=== PATIENT | female | born 1985 | race African-American/Black ===

== ENCOUNTER 2017-08-03 18:34 | Emergency (ER) | payer MEDICAID ==
[2017-08-03] MEDS ORDERED: LIDOCAINE 1% INJ-PF (10 MG/ML) 30 ML SDV INJ ONE (18:51)
[2017-08-03] MEDS ORDERED: IBUPROFEN 600 MG TABLET PO ONE ×2 (18:51→20:02)
[2017-08-03] MEDS ORDERED: ACETAMINOPHEN 325 MG TABLET PO ONE (18:51)
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
[2017-08-03] MEDS ORDERED: LIDOCAINE 4%/TETRACAINE 0.5%/EPI 0.18% 5 ML TOPICAL SOLN TOP ONE (19:08)
[2017-08-03 21:48] VITALS: BP 131/95
== END 2017-08-03 21:49 | disposition home or self-care (01) ==
LOC: ER 18:34
DX: L03.011 Cellulitis of right finger (principal); M79.642 Pain in left hand
CPT/HCPCS: 99283; J3490 ×4

== ENCOUNTER 2017-08-06 22:49 | Emergency (ER) | payer MEDICAID ==
[2017-08-06] MEDS ORDERED: KETOROLAC TROMETHAMINE 60 MG/2 ML SDV IM ONE (23:27)
[2017-08-06] MEDS ORDERED: SULFAMETHOXAZOLE/TRIMETHOPRIM 800-160 MG TABLET PO ONE (23:31)
--- NOTE | 2017-08-06 23:32 | ER Document Report ---
ED Wound - General Chief Complaint: Wound Recheck Stated Complaint: HAND PAIN Time Seen by Provider: 08/06/17 23:27 Mode of Arrival: Ambulatory Information source: Patient TRAVEL OUTSIDE OF THE [place] IN LAST 30 DAYS: No - HPI Patient complains to provider of: Laceration Occurred: Other - pt had stiches placed in L thumb 2 days ago -- states stiches have become painful. Denies fever, wound d/c - Related Data Allergies/Adverse Reactions: iodine Allergy (Verified 08/06/17 23:11) Shellfish * [Shellfish] Allergy (Verified 08/06/17 23:11) Penicillins Adverse Reaction (Verified 08/06/17 23:11) Past Medical History - Social History Smoking Status: Never Smoker Cigarette use (# per day): No Chew tobacco use (# tins/day): No Smoking Education Provided: No Family History: None, Reviewed & Not Pertinent Pulmonary Medical History: Reports: Hx Asthma, Hx Bronchitis Renal/ Medical History: Denies: Hx Peritoneal Dialysis - Immunizations Immunizations up to date: Yes Hx Diphtheria, Pertussis, Tetanus Vaccination: Yes Review of Systems - Review of Systems Constitutional: No symptoms reported EENT: No symptoms reported Cardiovascular: No symptoms reported Respiratory: No symptoms reported Gastrointestinal: No symptoms reported Musculoskeletal: See HPI, Other - R thumb pain -: Yes All other systems reviewed and negative Physical Exam - Vital signs Vitals: Temp Pulse Resp BP Pulse Ox 99 F 73 16 91/66 L 100 08/06/17 23:12 08/06/17 23:12 08/06/17 23:12 08/06/17 23:12 08/06/17 23:12 - General General appearance: Appears well In distress: Mild - Extremities Hand: Tender, Other - min TTP of R thumb distal aspect. There are stitches in woulnd on volar aspect of distal phalanx which there is a faint area of surrounding erythema with no expressable d/c; FROM of thumb. N/V intact Course - Vital Signs Vital signs: Temp Pulse Resp BP Pulse Ox 99 F 73 16 91/66 L 100 08/06/17 23:12 08/06/17 23:12 08/06/17 23:12 08/06/17 23:12 08/06/17 23:12 Discharge - Discharge Clinical Impression: Cellulitis Qualifiers: Site of cellulitis: extremity Site of cellulitis of extremity: finger Laterality: right Qualified Code(s): L03.011 - Cellulitis of right finger Condition: Stable Disposition: HOME, SELF-CARE Additional Instructions: rest, take meds as prescribed, return if worse Referrals: BEBA BUHS MD [COMMUNITY BASED STAFF] - Follow up as needed
[2017-08-07 00:30] VITALS: BP 98/67
== END 2017-08-07 00:30 | disposition home or self-care (01) ==
LOC: ER 22:49
DX: L03.011 Cellulitis of right finger (principal); S61.012D Laceration without foreign body of left thumb without damage to nail, subsequent encounter; M79.642 Pain in left hand; W45.8XXD Other foreign body or object entering through skin, subsequent encounter
CPT/HCPCS: 99282; 96372; J1885; J3490

== ENCOUNTER 2018-08-25 19:23 | Emergency (ER) | payer MEDICAID ==
--- NOTE | 2018-08-25 21:28 | EKG REPORT ---
SEVERITY:- NORMAL ECG - SINUS RHYTHM : Confirmed by: Yoselyn Matson MD 25-Aug-2018 21:27:03
--- NOTE | 2018-08-25 21:33 | ER Document Report ---
ED Psych Disorder / Suicide - General Information source: Patient TRAVEL OUTSIDE OF THE [place] 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 Patient has diagnosed bipolar disorder, schizophrenia, depression, and anxiety. Patient has had suicide attempts in the past. Patient states today prior to arrival she cut her left wrist. Patient states that she did not attempt suicide in any other way because she "started thinking about her kids". Patient states she has had inpatient therapy in the past with the last time being about 2 years ago. Patient does admit to using crack cocaine. Patient has a headache but denies any other physical symptoms including shortness of breath or chest pain. (MAIA OREILLY) - Related Data Allergies/Adverse Reactions: iodine Allergy (Verified 08/06/17 23:11) Shellfish * [Shellfish] Allergy (Verified 08/06/17 23:11) Penicillins Adverse Reaction (Verified 08/06/17 23:11) Past Medical History - General Information source: Patient - Social History Smoking Status: Never Smoker Cigarette use (# per day): No Frequency of alcohol use: Social Drug Abuse: Cocaine Lives with: Family Family History: None, Reviewed & Not Pertinent Patient has suicidal ideation: Yes Patient has homicidal ideation: No Pulmonary Medical History: Reports: Hx Asthma, Hx Bronchitis Surgical Hx: Negative - Immunizations Immunizations up to date: Yes Hx Diphtheria, Pertussis, Tetanus Vaccination: Yes <MAIA OREILLY - Last Filed: 08/26/18 01:01> Review of Systems - Review of Systems Constitutional: No symptoms reported EENT: No symptoms reported Cardiovascular: No symptoms reported Respiratory: No symptoms reported Gastrointestinal: No symptoms reported Genitourinary: No symptoms reported Female Genitourinary: No symptoms reported Musculoskeletal: No symptoms reported Skin: See HPI Hematologic/Lymphatic: No symptoms reported Neurological/Psychological: See HPI, Suicidal ideation -: Yes All other systems reviewed and negative <MAIA OREILLY - Last Filed: 08/26/18 01:01> Physical Exam <MAIA OREILLY - Last Filed: 08/26/18 01:01> <DEONDRE GAUTHIER - Last Filed: 08/26/18 01:01> - Vital signs Vitals: Temp Pulse Resp BP Pulse Ox 98.8 F 106 H 16 106/61 99 08/25/18 19:28 08/25/18 19:28 08/25/18 19:28 08/25/18 19:28 08/25/18 19:28 - Notes Notes: PHYSICAL EXAM GENERAL: Alert, interacts well. Intermittently tearful. HEAD: Normocephalic, atraumatic. EYES: Pupils equal, round, and reactive to light. Extraocular movements intact. ENT: Oral mucosa moist, tongue midline. NECK: Full range of motion. Supple. Trachea midline. LUNGS: Clear to auscultation bilaterally, no wheezes, rales, or rhonchi. No respiratory distress. HEART: Regular rate and rhythm. No murmurs, gallops, or rubs. ABDOMEN: Soft, non-tender. Non-distended. Bowel sounds present in all 4 quadrants. No guarding, rigidity, or rebound. EXTREMITIES: Moves all 4 extremities spontaneously. No edema, radial and dorsalis pedis pulses 2/4 bilaterally. No cyanosis. NEUROLOGICAL: Alert and oriented x3. Normal speech. PSYCH: Alert, intermittently tearful when discussing suicide. Normal affect. SKIN: Warm, dry, normal turgor. Linear vertical abrasion over the midline of the left volar wrist. No approximation necessary. No active bleeding. (MAIA OREILLY) Course - Laboratory Result Diagrams: 08/25/18 20:51 08/25/18 20:51 <MAIA OREILLY - Last Filed: 08/26/18 01:01> - Laboratory Result Diagrams: 08/25/18 20:51 08/25/18 20:51 <DEONDRE GAUTHIER - Last Filed: 08/26/18 01:01> - Re-evaluation Re-evalutation: 08/26/18 00:53 CBC shows elevated platelets of 468 otherwise unremarkable, CMP unremarkable, test negative, urinalysis shows large leukocyte esterase but 22 squamous epithelial cells, suspect this is contamination, patient denies any urinary symptomatology. No indication for treating asymptomatic bacteriuria. Urine drug screen shows cocaine which she states she last used several months ago. Salicylates, acetaminophen and alcohol are all undetectable. EKG is nonischemic. Patient will be held overnight for evaluation by behavioral health in the morning. Patient is agreeable to this plan. (DEONDRE GAUTHIER) - Vital Signs Vital signs: Temp Pulse Resp BP Pulse Ox 98.8 F 106 H 16 106/61 99 08/25/18 19:28 08/25/18 19:28 08/25/18 19:28 08/25/18 19:28 08/25/18 19:28 - Laboratory Laboratory results interpreted by me: 08/25/18 08/25/18 08/25/18 20:51 20:51 20:51 MCH 26.8 L RDW 15.0 H Plt Count 468 H ALT 8 L Urine Protein 30 H Ur Leukocyte Esterase LARGE H Salicylates < 1.0 L Acetaminophen < 10 L - EKG Interpretation by Me Additional EKG results interpreted by me: 08/26/18 00:54 EKG shows sinus rhythm at a rate of 94, normal axis, normal intervals, no ST segment elevations or depressions, no T wave inversions per my interpretation. ( DEONDRE GAUTHIER) Discharge <MAIA OREILLY - Last Filed: 08/26/18 01:01> <DEONDRE GAUTHIER - Last Filed: 08/26/18 01:01> - Discharge Clinical Impression: Suicidal ideation Abrasion of left wrist Qualifiers: Encounter type: initial encounter Qualified Code(s): S60.812A - Abrasion of left wrist, initial encounter Condition: Stable Disposition: PSYCH HOSP/UNIT Referrals: HERNANDO VEGA MD [ACTIVE STAFF] - Follow up as needed Scribe Attestation: 08/26/18 01:01 I personally performed the services described in the documentation, reviewed and edited the documentation which was dictated to the scribe in my presence, and it accurately records my words and actions. (DEONDRE GAUTHIER) Scribe Documentation - Scribe Written by Aldo:: Aldo Henao, 08/25/2018 2319 acting as scribe for :: Sterling <MAIA OREILLY - Last Filed: 08/26/18 01:01>
[2018-08-25 21:44] LABS: ABSOLUTE BASOPHILS # (AUTO) 0.1 10^3/uL (0.0-0.2); ABSOLUTE EOSINOPHILS # (AUTO) 0.1 10^3/uL (0.0-0.6); ABSOLUTE LYMPHOCYTES (AUTO) 2.3 10^3/uL (0.5-4.7); ABSOLUTE MONOCYTES (AUTO) 0.4 10^3/uL (0.1-1.4); BASOPHILS % (AUTO) 1.6 % (0-2); EOSINOPHILS % (AUTO) 1.5 % (0-6); HEMATOCRIT 41.6 % (36.0-47.0); HEMOGLOBIN 13.8 g/dL (12.0-15.5); LYMPHOCYTES % (AUTO) 39.6 % (13-45); MEAN CORPUSCULAR HEMOGLOBIN 26.8 pg (27.0-33.4); MEAN CORPUSCULAR HGB CONC 33.2 g/dL (32.0-36.0); MEAN CORPUSCULAR VOLUME 81 fl (80-97); MONOCYTES % (AUTO) 6.3 % (3-13); PLATELET COUNT 468 10^3/uL (150-450); RED BLOOD COUNT 5.15 10^6/uL (3.72-5.28); TOTAL CELLS COUNTED % (AUTO) 100 %; WHITE BLOOD COUNT 5.8 10^3/uL (4.0-10.5)
[2018-08-25 22:14] LABS: APPEARANCE,URINE CLOUDY; BILIRUBIN,URINE NEGATIVE (NEGATIVE); COLOR,URINE YELLOW; GLUCOSE, URINE NEGATIVE (NEGATIVE); KETONES,URINE NEGATIVE (NEGATIVE); LEUKOCYTE ESTERASE,URINE LARGE (NEGATIVE); NITRITE,URINE NEGATIVE (NEGATIVE); PROTEIN,URINE 30 mg/dL (NEGATIVE); URINE SPECIFIC GRAVITY 1.021; UROBILINOGEN,URINE NEGATIVE mg/dL (<2.0)
[2018-08-25 22:24] LABS: URINE AMPHETAMINES SCREEN NEGATIVE; URINE BARBITURATES SCREEN NEGATIVE; URINE BENZODIAZEPINES SCREEN NEGATIVE; URINE COCAINE SCREEN UNCONFIRMED POSITIVE; URINE MARIJUANA (THC) SCREEN NEGATIVE; URINE METHADONE SCREEN NEGATIVE; URINE PHENCYCLIDINE SCREEN NEGATIVE
[2018-08-25 22:36] LABS: ALANINE AMINOTRANSFERASE 8 U/L (9-52); ALBUMIN 4.3 g/dL (3.5-5.0); ALKALINE PHOSPHATASE 50 U/L (38-126); ANION GAP 11 (5-19); ASPARTATE AMINO TRANSFERASE 15 U/L (14-36); BILIRUBIN,DIRECT 0.3 mg/dL (0.0-0.4); BILIRUBIN,TOTAL 0.6 mg/dL (0.2-1.3); BLOOD UREA NITROGEN 10 mg/dL (7-20); CALCIUM 9.7 mg/dL (8.4-10.2); CARBON DIOXIDE 27 mmol/L (22-30); CHLORIDE 104 mmol/L (98-107); GLUCOSE 95 mg/dL (75-110); POTASSIUM 4.1 mmol/L (3.6-5.0); SODIUM 141.6 mmol/L (137-145); TOTAL PROTEIN 7.6 g/dL (6.3-8.2)
[2018-08-25 22:59] LABS: ACETAMINOPHEN < 10 ug/mL (10-30); ALCOHOL < 10 mg/dL (NONE DETECTED); SALICYLATE < 1.0 mg/dL (2.0-20.0)
[2018-08-26] MEDS ORDERED: TRAZODONE HCL 50 MG TABLET PO ONE (01:26)
[2018-08-26] MEDS ORDERED: HYDROXYZINE PAMOATE 50 MG CAPSULE PO ONE (01:26)
[2018-08-26] MEDS ORDERED: ACETAMINOPHEN 325 MG TABLET PO ONE (01:26)
--- NOTE | 2018-08-26 09:19 | ER Document Report ---
Doctor's Note Notes: 08/26/18 09:19 33-year-old female with past medical history of schizophrenia, depression, bipolar disorder, who presents with an abrasion to her left wrist with suicidal ideations. Labs and vital signs as recorded. Awaiting psychiatric evaluation. Patient is currently calm and cooperative. 08/26/18 17:17 Pt's sister's phone number is , Emilia. Pt's mom's number is Laneece at [phone]. 08/26/18 18:08 Patient is still stating some passive suicidal ideation. She does not have a plan. It appears that the patient is not able to go live with her mother given that the mother has custody of her child that she is not able to be in direct contact with. Patient has IVC paperwork taken out given her suicidal ideation. We will attempt to monitor the patient overnight to find a better plan for tomorrow.
--- NOTE | 2018-08-26 16:53 | PSYCHOLOGICAL NOTE ---
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 No medication recommendations at this time Cocaine use disorder Bipolar disorder per history provided by patient Impression\\plan: Patient reports that provides conflicting information on multiple topics including how she cut herself, her drug abuse, and reported mental health symptoms. Patient discloses auditory and visual hallucinations however patient is unable to provide details that are congruent with known manifestations (i.e. reports visual hallucinations are black and white and unable to provide any details on her auditory hallucinations). Patient disclosed that she wants to go inpatient psychiatric treatment so she is "not around things and people." She continues close that she is "mentally weak right now... I am going to relapse and start hanging around people I should not be." Clinician explained patient cannot use inpatient psychiatric treatment as sobriety living facility. Patient demonstrated good impulse control in calling mobile crisis and reaching out for further assistance when engaging in superficial cutting. Clinician notes patient did have a superficial cuts going up the inner wrist. Patient denies any recent substance abuse however she is positive for cocaine. At this time outpatient mental health treatment would be more appropriate to help the patient build coping skills and understand triggers. Dr. Santiago was consulted and the care and management of this patient ; attending physician is not in agreement with recommendations and disposition. Patient will be reevaluated.
--- NOTE | 2018-08-27 09:34 | ER Document Report ---
Doctor's Note Notes: 08/27/18 09:33 Patient is a 33-year-old female with past medical history of possible depression /bipolar disorder who made a superficial attempt by cutting her wrist as well as cocaine. Attempting to find a good discharge plan with the psychology team. Vital signs are stable. Patient is in no acute distress. Urine analysis as recorded but the patient has no lower abdominal pain, vomiting , fevers, or dysuria. Many squamous cells present. 08/27/18 15:57 Patient is currently stating that she is no longer suicidal. She denies any auditory or visual hallucinations. [facility] does not believe that the patient qualifies for involuntary commitment any longer at this time. They have set up [facility] to visit the patient at home and help expedite follow-up. The urine culture shows gram-negative rods. Patient is allergic to penicillin. I will start the patient on a course of Bactrim. Patient still denies any dysuria, abdominal pain, fevers, or vomiting.
[2018-08-27] MEDS ORDERED: SULFAMETHOXAZOLE/TRIMETHOPRIM 800-160 MG TABLET PO ONE (15:57)
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
[2018-08-27 16:28] VITALS: BP 106/62
== END 2018-08-27 16:27 | disposition home or self-care (01) ==
LOC: ER 19:23
DX: S60.812A Abrasion of left wrist, initial encounter (principal); X78.9XXA Intentional self-harm by unspecified sharp object, initial encounter; N39.0 Urinary tract infection, site not specified; F14.10 Cocaine abuse, uncomplicated; F31.9 Bipolar disorder, unspecified; F20.9 Schizophrenia, unspecified; F41.9 Anxiety disorder, unspecified; R51 Headache; J45.909 Unspecified asthma, uncomplicated; Z91.013 Allergy to seafood
CPT/HCPCS: 93005; 99285; 36415; 87086; 80307 ×4; 84703; 85025; 87088; 80053; 81001; 87186; 93010; J3490 ×4

== ENCOUNTER 2018-09-03 01:49 | Emergency (ER) | payer MEDICAID ==
[2018-09-03] MEDS ORDERED: DIAZEPAM 5 MG TABLET PO ONE (02:52)
[2018-09-03 03:32] LABS: ABSOLUTE BASOPHILS # (AUTO) 0.1 10^3/uL (0.0-0.2); ABSOLUTE EOSINOPHILS # (AUTO) 0.1 10^3/uL (0.0-0.6); ABSOLUTE LYMPHOCYTES (AUTO) 3.1 10^3/uL (0.5-4.7); ABSOLUTE MONOCYTES (AUTO) 0.6 10^3/uL (0.1-1.4); ABSOLUTE NEUT (AUTO) 3.4 10^3/uL (1.7-8.2); BASOPHILS % (AUTO) 1.2 % (0-2); EOSINOPHILS % (AUTO) 1.4 % (0-6); HEMATOCRIT 36.7 % (36.0-47.0); HEMOGLOBIN 12.1 g/dL (12.0-15.5); LYMPHOCYTES % (AUTO) 42.4 % (13-45); MEAN CORPUSCULAR HEMOGLOBIN 26.5 pg (27.0-33.4); MEAN CORPUSCULAR HGB CONC 32.9 g/dL (32.0-36.0); MEAN CORPUSCULAR VOLUME 80 fl (80-97); MONOCYTES % (AUTO) 8.3 % (3-13); PLATELET COUNT 382 10^3/uL (150-450); RED BLOOD COUNT 4.57 10^6/uL (3.72-5.28); RED CELL DISTRIBUTION WIDTH 14.5 % (11.5-14.0); SEGMENTED NEUTROPHILS % (AUTO) 46.7 % (42-78); TOTAL CELLS COUNTED % (AUTO) 100 %; WHITE BLOOD COUNT 7.4 10^3/uL (4.0-10.5)
--- NOTE | 2018-09-03 03:39 | ER Document Report ---
Addendum entered and electronically signed by DEONDRE GAUTHIER DO 09/03/18 09:53: Discharge - Discharge Clinical Impression: Suicidal ideation, Substance abuse UTI (urinary tract infection) Qualifiers: Urinary tract infection type: site unspecified Hematuria presence: without hematuria Qualified Code(s): N39.0 - Urinary tract infection, site not specified Condition: Stable Disposition: HOME, SELF-CARE Additional Instructions: Your urinalysis does show evidence urine tract infection. Please take the antibiotic as prescribed. Please return to the ER if you have fevers, abdominal pain, or feel that you are worsening in any way. A bed at the [facility] has been secured for you and [facility] has agreed to transport you. You are highly encouraged to follow through on this voluntary placement. You are recommended to follow-up with outpatient substance abuse treatment. COCAINE ABUSE: Cocaine causes many dangerous medical problems. Problems can occur even with "usual" amounts. Cocaine affects judgement, creating a sense of invulnerability. Cocaine users often make bad decisions that seem "great" at the time. Most cocaine users eventually will be hurt by bad job performance, damaged personal relations, crime, and unsafe sexual practices. Toxic effects of cocaine can include seizures, hallucinations, delusions, high blood pressure, heart damage, or sudden . There's always the risk of a "bad batch." But heart attacks, brain hemorrhages, or cardiac arrest can occur unpredictably even with "normal" use. Injection of cocaine is risky for abscesses, endocarditis (heart infection), pneumonia, and AIDS. Withdrawal from cocaine often causes anxiety and drug cravings. Some users become paranoid and psychotic. Many treatment programs are available, but you must make the decision to quit. Medication can be prescribed to control the symptoms of cocaine toxicity (beta blockers or benzodiazepines). Withdrawal symptoms may require tranquilizers. DEPRESSION: Your evaluation reveals that you have mental depression. While symptoms may be vague, they often include disturbance of sleep, fatigue, loss of appetite, and general loss of interest in life. While depression may be a side effect of drugs, or a reaction to a major change in your life, many cases have no known cause. If depression is acute, and related to a major loss in your life, you can expect it to clear completely with time. If you have been depressed a long time, are prone to repeated bouts of depression or low mood, or have been thi nking of suicide, get help. Depression can be treated with anti-depressant medication and counselling. Long-term depression will often take a few weeks to clear, even with appropriate medication. Follow-up care is important. SUICIDAL IDEATION: Suicidal ideation is a common medical term for thoughts about suicide, which may be as detailed as a formulated plan, without the suicidal act itself. Although most people who undergo suicidal ideation do not commit suicide, some go on to make suicide attempts. The range of suicidal ideation varies greatly from fleeting to detailed planning, role playing, and unsuccessful attempts. While thoughts about suicide are common, most people do not carry out serious actions to commit suicide. Based upon your evaluation and discussion with you, we do not believe you are currently at risk to act upon your thoughts of suicide. You have agreed to return to the Emergency Department, at any time, if you feel inclined to act upon your suicidal thoughts. FOLLOW-UP CARE: If you experience worsening or a significant change in your symptoms, notify the physician immediately or return to the Emergency Department at any time for re-evaluation. Prescriptions: Cephalexin Monohydrate [Keflex 500 mg Capsule] 500 mg PO BID 5 Days capsule Referrals: [facility] [Outside] - 09/03/18 (Please arrive before 4pm) [facility] Crisis Team [Outside] - Follow up as needed Addendum entered and electronically signed by SAVITA BECKWITH LCSWA 09/03/18 08:54: Discharge - Discharge Clinical Impression: Suicidal ideation, Substance abuse UTI (urinary tract infection) Qualifiers: Urinary tract infection type: site unspecified Hematuria presence: without hematuria Qualified Code(s): N39.0 - Urinary tract infection, site not specified Condition: Stable Disposition: HOME, SELF-CARE Additional Instructions: Your urinalysis does show evidence urine tract infection. Please take the antibiotic as prescribed. Please return to the ER if you have fevers, abdominal pain, or feel that you are worsening in any way. A bed at the [facility] has been secured for you and [facility] has agreed to transport you. You are highly encouraged to follow through on this voluntary placement. You are recommended to follow-up with outpatient substance abuse treatment. COCAINE ABUSE: Cocaine causes many dangerous medical problems. Problems can occur even with "usual" amounts. Cocaine affects judgement, creating a sense of invulnerability. Cocaine users often make bad decisions that seem "great" at the time. Most cocaine users eventually will be hurt by bad job performance, damaged personal relations, crime, and unsafe sexual practices. Toxic effects of cocaine can include seizures, hallucinations, delusions, high blood pressure, heart damage, or sudden . There's always the risk of a "bad batch." But heart attacks, brain hemorrhages, or cardiac arrest can occur unpredictably even with "normal" use. Injection of cocaine is risky for abscesses, endocarditis (heart infection), pneumonia, and AIDS. Withdrawal from cocaine often causes anxiety and drug cravings. Some users become paranoid and psychotic. Many treatment programs are available, but you must make the decision to quit. Medication can be prescribed to control the symptoms of cocaine toxicity (beta blockers or benzodiazepines). Withdrawal symptoms may require tranqu ilizers. DEPRESSION: Your evaluation reveals that you have mental depression. While symptoms may be vague, they often include disturbance of sleep, fatigue, loss of appetite, and general loss of interest in life. While depression may be a side effect of drugs, or a reaction to a major change in your life, many cases have no known cause. If depression is acute, and related to a major loss in your life, you can expect it to clear completely with time. If you have been depressed a long time, are prone to repeated bouts of depression or low mood, or have been thinking of suicide, get help. Depression can be treated with anti-depressant medication and counselling. Long-term depression will often take a few weeks to clear, even with appropriate medication. Follow-up care is important. SUICIDAL IDEATION: Suicidal ideation is a common medical term for thoughts about suicide, which may be as detailed as a formulated plan, without the suicidal act itself. Although most people who undergo suicidal ideation do not commit suicide, some go on to make suicide attempts. The range of suicidal ideation varies greatly from fleeting to detailed planning, role playing, and unsuccessful attempts. While thoughts about suicide are common, most people do not carry out serious actions to commit suicide. Based upon your evaluation and discussion with you, we do not believe you are currently at risk to act upon your thoughts of suicide. You have agreed to return to the Emergency Department, at any time, if you feel inclined to act upon your suicidal thoughts. FOLLOW-UP CARE: If you experience worsening or a significant change in your symptoms, notify the physician immediately or return to the Emergency Department at any time for re- evaluation. Prescriptions: Cephalexin Monohydrate [Keflex 500 mg Capsule] 500 mg PO BID 5 Days capsule Referrals: [facility] [Outside] - 09/03/18 (Please arrive before 4pm) [facility] Crisis Team [Outside] - Follow up as needed Original Note: ED General - General Chief Complaint: Suicidal Ideation Stated Complaint: SUICIDAL IDEATION WITH PLAN TO CUT WRIST Time Seen by Provider: 09/03/18 02:17 Notes: Patient is a 33-year-old female presents with complaint of suicidal ideations. She says she is thought about cutting her wrist today. She was here recently where she actually cut her wrist. She says that she has been very depressed and suicidal because she has a cocaine addiction. She has had this for approximately a year. She says when she does not use cocaine she feels less if she goes in withdrawal becomes very anxious and depressed. She denies any recent alcohol use. She denies any other drug use. No other complaints at this time. Patient does mention that she supposed to be on antibiotic for UTI. She does not know what the antibiotic is. TRAVEL OUTSIDE OF THE [place] IN LAST 30 DAYS: No - Related Data Allergies/Adverse Reactions: iodine Allergy (Verified 08/06/17 23:11) Shellfish * [Shellfish] Allergy (Verified 08/06/17 23:11) Penicillins Adverse Reaction (Verified 08/06/17 23:11) Past Medical History - Social History Smoking Status: Current Some Day Smoker Frequency of alcohol use: None Drug Abuse: Cocaine Family History: None, Reviewed & Not Pertinent Pulmonary Medical History: Reports: Hx Asthma, Hx Bronchitis Renal/ Medical History: Denies: Hx Peritoneal Dialysis - Immunizations Immunizations up to date: Yes Hx Diphtheria, Pertussis, Tetanus Vaccination: Yes Review of Systems - Review of Systems Notes: My Normal Review Basic REVIEW OF SYSTEMS: CONSTITUTIONAL : Denies fever, chills, or sweats. Denies recent illness. EENT: Denies eye, ear, throat, or mouth pain or symptoms. Denies nasal or sinus congestion. CARDIOVASCULAR: Denies chest pain. RESPIRATORY: Denies cough, cold, or chest congestion. Denies shortness of breath, difficulty breathing, or wheezing. GASTROINTESTINAL: Denies abdominal pain. Denies nausea, vomiting, or diarrhea. GENITOURINARY: Dysuria. Recent diagnosis of UTI. MUSCULOSKELETAL: Denies neck or back pain or joint pain or swelling. SKIN: Denies rash or skin lesions. NEUROLOGICAL: Denies altered mental status or loss of consciousness. Denies headache. Denies weakness or paralysis or loss of use of either side. Denies problems with gait or speech. Denies sensory or motor loss. PSYCHIATRIC: Suicidal ideations. Depression. ALL OTHER SYSTEMS REVIEWED AND NEGATIVE. Physical Exam - Vital signs Vitals: Temp Pulse Resp BP Pulse Ox 98.8 F 86 16 120/60 99 09/03/18 01:50 09/03/18 01:50 09/03/18 01:50 09/03/18 01:50 09/03/18 01:50 - Notes Notes: General Appearance: Well nourished, alert, cooperative, no acute distress, no obvious discomfort. Anxious and tearful. Vitals: reviewed, See vital signs table. Head: no swelling or tenderness to the head Eyes: PERRL, EOMI, Conjuctiva clear Mouth: No decreasd moisture Lungs: No wheezing, No rales, No rhonci, No accessory muscle use, good air exchange bilaterally. Heart: Normal rate, Regular rythm, No murmur, no rub Extremities: strength 5/5 in all extremities, good pulses in all extremities, no swelling or tenderness in the extremities, no edema. Skin: warm, dry, appropriate color, no rash Neuro: speech clear, oriented x 3, normal affect, responds appropriately to questions. Course - Vital Signs Vital signs: Temp Pulse Resp BP Pulse Ox 98.8 F 86 16 120/60 99 09/03/18 01:50 09/03/18 01:50 09/03/18 01:50 09/03/18 01:50 09/03/18 01:50 - Laboratory Result Diagrams: 09/03/18 03:20 09/03/18 03:20 Laboratory results interpreted by me: 09/03/18 09/03/18 09/03/18 03:15 03:20 03:20 MCH 26.5 L RDW 14.5 H Urine Protein 30 H Urine Ketones TRACE H Urine Bilirubin SMALL H Urine Urobilinogen 4.0 H Ur Leukocyte Esterase LARGE H Salicylates < 1.0 L Acetaminophen < 10 L - EKG Interpretation by Me Additional EKG results interpreted by me: 09/03/18 03:39 EKG is reviewed and interpreted by me. EKG shows sinus rhythm with a rate of [address] segment elevation or depression. No ischemic T wave inversions. [place] interval, QRS duration, QTc intervals are within normal range. No old EKG available for comparison. Discharge - Discharge Clinical Impression: Suicidal ideation UTI (urinary tract infection) Qualifiers: Urinary tract infection type: site unspecified Hematuria presence: without hematuria Qualified Code(s): N39.0 - Urinary tract infection, site not specified Additional Instructions: Your urinalysis does show evidence urine tract infection. Please take the antibiotic as prescribed. Please return to the ER if you have fevers, abdominal pain, or feel that you are worsening in any way. Prescriptions: Cephalexin Monohydrate [Keflex 500 mg Capsule] 500 mg PO BID 5 Days capsule
[2018-09-03 03:46] LABS: APPEARANCE,URINE CLOUDY; BILIRUBIN,URINE SMALL (NEGATIVE); COLOR,URINE YELLOW; GLUCOSE, URINE NEGATIVE (NEGATIVE); KETONES,URINE TRACE mg/dL (NEGATIVE); LEUKOCYTE ESTERASE,URINE LARGE (NEGATIVE); NITRITE,URINE NEGATIVE (NEGATIVE); PROTEIN,URINE 30 mg/dL (NEGATIVE); URINE SPECIFIC GRAVITY 1.027
[2018-09-03 03:47] LABS: ALANINE AMINOTRANSFERASE 12 U/L (9-52); ALBUMIN 4.2 g/dL (3.5-5.0); ALKALINE PHOSPHATASE 65 U/L (38-126); ANION GAP 9 (5-19); ASPARTATE AMINO TRANSFERASE 17 U/L (14-36); BILIRUBIN,DIRECT 0.3 mg/dL (0.0-0.4); BILIRUBIN,TOTAL 0.7 mg/dL (0.2-1.3); BLOOD UREA NITROGEN 7 mg/dL (7-20); CALCIUM 9.6 mg/dL (8.4-10.2); CARBON DIOXIDE 26 mmol/L (22-30); CHLORIDE 106 mmol/L (98-107); GLUCOSE 85 mg/dL (75-110); POTASSIUM 3.7 mmol/L (3.6-5.0); SODIUM 140.6 mmol/L (137-145); TOTAL PROTEIN 7.2 g/dL (6.3-8.2)
[2018-09-03 03:48] LABS: ACETAMINOPHEN < 10 ug/mL (10-30); ALCOHOL < 10 mg/dL (NONE DETECTED); SALICYLATE < 1.0 mg/dL (2.0-20.0)
[2018-09-03 03:55] LABS: URINE AMPHETAMINES SCREEN NEGATIVE; URINE BARBITURATES SCREEN NEGATIVE; URINE BENZODIAZEPINES SCREEN NEGATIVE; URINE COCAINE SCREEN UNCONFIRMED POSITIVE; URINE MARIJUANA (THC) SCREEN NEGATIVE; URINE METHADONE SCREEN NEGATIVE; URINE PHENCYCLIDINE SCREEN NEGATIVE
[2018-09-03] MEDS ORDERED: CEPHALEXIN 500 MG CAPSULE PO ONE (04:34)
--- NOTE | 2018-09-03 06:38 | EKG REPORT ---
SEVERITY:- NORMAL ECG - SINUS RHYTHM : Confirmed by: Kalyan Gomez MD 03-Sep-2018 06:38:02
--- NOTE | 2018-09-03 09:01 | PSYCHOLOGICAL NOTE ---
Psych Note - Psych Note Date seen by psych provider: 09/03/18 Time seen by psych provider: 07:45 Psych Note: Reason for Consult: suicidal ideation Patient is a 33-year-old female presents with complaint of suicidal ideations. Patient reports that she would like assistance with treatment for her substance abuse. She discloses that she last used cocaine yesterday and admits that it has been a problem. Clinician notes patient was seen by this clinician and department last week for similar etiology. Patient reports that she had thoughts of cutting her wrists as a maladaptive coping skill and confirms she has a history of cutting. Patient discloses that she would like assistance in getting into long-term residential treatment for substance abuse. She reports that she feels going to the [facility] would be appropriate. Behavior health team contacted the [facility]; they have beds available. Patient conducted phone interview and a bed has been secured. Behavior health team contacted [facility]. They agree to transport patient to the [facility]. Patient is alert and orientated to person, place, time and circumstance. Mood is euthymic with congruent affect as evidenced by smiling and openly engaging with clinician. Patient denies suicidal and homicidal ideation. Patient reports thoughts of wanting to cut herself and confirms she has a history of cutting as a maladaptive coping skill. Delusions are absent behaviors congruent with an intact reality based presentation i.e. organized and linear thought process. Eye contact is well-maintained. Conversational speech is within normal rate, tone and prosody. Intellectual abilities appear to be within the average range. Attention and concentration are fair. Insight, judgment, impulse control are fair. No medication recommendations at this time Diagnosis 292.9 (F14.99) unspecified cocaine use disorder 296.80 (F31.9) Bipolar disorder per history provided by patient Impression\plan: Patient is cleared from acute psychiatric services. Patient discloses passive suicidal ideation i.e. no plans means or intent directly related to her substance abuse. She reports she had thoughts of cutting her wrists as a maladaptive coping skill and confirms she does have a history of cutting. Patient requests assistance in getting into [facility] treatment. Behavior health team assisted patient and patient does have a secured bed at the [facility]. [facility], will be transporting the patient. Patient is recommended to continue with substance abuse treatment and is highly encouraged to follow through with this voluntary placement. Dr. Santiago was consulted and the care management this patient; attending physicians in agreement with recommendations and disposition.
--- NOTE | 2018-09-03 09:54 | ER Document Report ---
Doctor's Note Notes: 09/03/18 09:53 Discussed patient with behavioral health and discussed discharge plan with patient, she is agreeable to discharge with mobile crisis will transport her to the [facility]. Patient is being treated for UTI. Patient has no questions or concerns at this time. Heart reveals regular rate and rhythm with no murmurs gallops or rubs Lungs are clear to auscultation bilaterally.
[2018-09-03] MEDS ORDERED: CEPHALEXIN 500 MG CAPSULE PO SCH (10:00)
[2018-09-03 10:18] VITALS: BP 119/69
== END 2018-09-03 14:50 | disposition home or self-care (01) ==
LOC: ER 01:49
DX: R45.851 Suicidal ideations (principal); F19.10 Other psychoactive substance abuse, uncomplicated; N39.0 Urinary tract infection, site not specified; Z88.0 Allergy status to penicillin; F17.200 Nicotine dependence, unspecified, uncomplicated
CPT/HCPCS: 93005; 99285; 36415; 80307 ×4; 84703; 85025; 80053; 81001; 93010; J3490

== ENCOUNTER 2020-05-17 17:21 | Emergency (ER) | payer MEDICAID ==
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
[2020-05-17 18:46] LABS: ABSOLUTE BASOPHILS # (AUTO) 0.1 10^3/uL (0.0-0.2); ABSOLUTE LYMPHOCYTES (AUTO) 2.1 10^3/uL (0.5-4.7); ABSOLUTE MONOCYTES (AUTO) 0.8 10^3/uL (0.1-1.4); ABSOLUTE NEUT (AUTO) 6.4 10^3/uL (1.7-8.2); BASOPHILS % (AUTO) 0.9 % (0-2); EOSINOPHILS % (AUTO) 0.2 % (0-6); HEMATOCRIT 39.9 % (36.0-47.0); HEMOGLOBIN 13.2 g/dL (12.0-15.5); LYMPHOCYTES % (AUTO) 22.1 % (13-45); MEAN CORPUSCULAR HEMOGLOBIN 25.9 pg (27.0-33.4); MEAN CORPUSCULAR HGB CONC 33.1 g/dL (32.0-36.0); MEAN CORPUSCULAR VOLUME 78 fl (80-97); MONOCYTES % (AUTO) 8.7 % (3-13); PLATELET COUNT 458 10^3/uL (150-450); RED CELL DISTRIBUTION WIDTH 17.3 % (11.5-14.0); SEGMENTED NEUTROPHILS % (AUTO) 68.1 % (42-78); TOTAL CELLS COUNTED % (AUTO) 100 %; WHITE BLOOD COUNT 9.4 10^3/uL (4.0-10.5)
[2020-05-17 18:53] LABS: APPEARANCE,URINE SLIGHTLY-CLOUDY; BILIRUBIN,URINE NEGATIVE (NEGATIVE); GLUCOSE, URINE NEGATIVE (NEGATIVE); KETONES,URINE NEGATIVE (NEGATIVE); LEUKOCYTE ESTERASE,URINE SMALL (NEGATIVE); NITRITE,URINE NEGATIVE (NEGATIVE); PROTEIN,URINE 100 mg/dL (NEGATIVE); UROBILINOGEN,URINE NEGATIVE mg/dL (<2.0)
[2020-05-17 18:55] LABS: COLOR,URINE PINK
[2020-05-17 19:03] LABS: URINE AMPHETAMINES SCREEN NEGATIVE; URINE BARBITURATES SCREEN NEGATIVE; URINE BENZODIAZEPINES SCREEN NEGATIVE; URINE COCAINE SCREEN NEGATIVE; URINE MARIJUANA (THC) SCREEN NEGATIVE; URINE METHADONE SCREEN NEGATIVE; URINE PHENCYCLIDINE SCREEN NEGATIVE
[2020-05-17 19:08] LABS: ALBUMIN 4.9 g/dL (3.5-5.0); ALKALINE PHOSPHATASE 74 U/L (38-126); ANION GAP 13 (5-19); ASPARTATE AMINO TRANSFERASE 21 U/L (14-36); BILIRUBIN,DIRECT 0.3 mg/dL (0.0-0.4); BILIRUBIN,TOTAL 1.1 mg/dL (0.2-1.3); BLOOD UREA NITROGEN 24 mg/dL (7-20); CALCIUM 9.6 mg/dL (8.4-10.2); CARBON DIOXIDE 23 mmol/L (22-30); CHLORIDE 103 mmol/L (98-107); GLUCOSE 85 mg/dL (75-110); POTASSIUM 4.2 mmol/L (3.6-5.0); TOTAL PROTEIN 9.1 g/dL (6.3-8.2)
[2020-05-17 19:09] LABS: ACETAMINOPHEN < 10 ug/mL (10-30); ALCOHOL < 10 mg/dL (NONE DETECTED); SALICYLATE < 1.0 mg/dL (2.0-20.0)
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
[2020-05-17] MEDS ORDERED: NITROFURANTOIN MONOHYD/M-CRYST 100 MG CAPSULE PO ONE (21:37)
--- NOTE | 2020-05-17 21:48 | ER Document Report ---
ED General - General Chief Complaint: Psych Problem Stated Complaint: SUCIDIAL IDEATION Time Seen by Provider: 05/17/20 17:42 Primary Care Provider: LARISSA CARMEN MD [HONORARY] - Follow up as needed Mode of Arrival: Ambulatory TRAVEL OUTSIDE OF THE [place] IN LAST 30 DAYS: No - HPI Context: This is a 35-year-old female who presents to the emergency department via POV with I have asked mobile crisis for medical screening exam. Patient presents complaining of lots of personal stressors. Patient patient was apparently just had an inpatient psychiatric treatment center in [facility] for 7 days and was discharged 3 days ago. Patient states that she is upset and stressed out in relation to issues with her family and will issues in terms of drug use. Patient denies suicidal ideation or homicidal intent at this time. Patient states she has been compliant in terms of taking her medications patient states that nothing seems to alleviate the stressors in her life and they sometimes seem to get exacerbated and worse all by themselves. Patient is additionally upset because she saw 1 of her daughters earlier today. 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 Reportedly the investigation is ongoing at this time. Patient denies visual or auditory hallucinations patient has been seen and evaluated by behavioral health services here at [facility] ED and is cleared from acute psychiatric services. The patient was provided with a list of local resources in terms of various shelters, food bank seat cushions and crisis centers. Patient states that she does have history of mental health problems and substance abuse disorders including cocaine abuse. Patient states the last time she used was a couple of days ago. Patient denies fever, chills, chest pain, shortness of breath, abdominal pain, nausea, vomiting, loss of taste, loss of sense of smell. - Related Data Allergies/Adverse Reactions: iodine Allergy (Verified 08/06/17 23:11) Shellfish * [Shellfish] Allergy (Verified 08/06/17 23:11) Penicillins Adverse Reaction (Verified 08/06/17 23:11) Past Medical History - General Information source: Patient - Social History Smoking Status: Unknown if Ever Smoked Drug Abuse: Cocaine Family History: None, Reviewed & Not Pertinent Patient has homicidal ideation: No Pulmonary Medical History: Reports: Hx Asthma, Hx Bronchitis Renal/ Medical History: Denies: Hx Peritoneal Dialysis - Immunizations Immunizations up to date: Yes Hx Diphtheria, Pertussis, Tetanus Vaccination: Yes Review of Systems - Review of Systems Constitutional: No symptoms reported EENT: No symptoms reported Cardiovascular: No symptoms reported Respiratory: No symptoms reported Gastrointestinal: No symptoms reported Genitourinary: No symptoms reported Female Genitourinary: No symptoms reported Musculoskeletal: No symptoms reported Skin: No symptoms reported Hematologic/Lymphatic: No symptoms reported Neurological/Psychological: Depression, Anxiety. denies: Homicidal ideation, Suicidal ideation -: Yes All other systems reviewed and negative Physical Exam - Vital signs Vitals: Temp Pulse Resp BP Pulse Ox 98.3 F 96 16 99/59 L 98 05/17/20 17:30 05/17/20 17:30 05/17/20 17:30 05/17/20 17:30 05/17/20 17:30 - Notes Notes: CONSTITUTIONAL [Vital signs reviewed, Patient appears comfortable, Alert and oriented X 3, Normal stature.] HEAD [Atraumatic, Normocephalic.] EYES [Eyes are normal to inspection, No discharge from eyes, Extraocular muscles intact, Sclera are normal, Conjunctiva are normal.] ENT [Ears normal to inspection, Nose examination normal, Posterior pharynx normal, Mouth normal to inspection.] NECK [Normal ROM, No jugular venous distention, No meningeal signs, no carotid bruit.] RESPIRATORY CHEST [Chest is nontender, Breath sounds normal, No respiratory distress.] CARDIOVASCULAR [RRR, No murmurs, Normal S1 S2, No rub, No gallop.] ABDOMEN [Abdomen is nontender, No pulsatile masses, No other masses, Bowel sounds normal, No distension, No peritoneal signs, No hernias.] BACK [There is no CVA Tenderness, There is no tenderness to palpation, Normal inspection.] UPPER EXTREMITY [Inspection normal, No cyanosis, No clubbing, No edema, 2+ radial pulses.] LOWER EXTREMITY [Inspection normal, No cyanosis, No clubbing, No edema, No calf tenderness, 2+ femoral pulses.] NEURO [No focal motor deficits, No focal sensory deficits, Speech normal.] SKIN [Skin is warm, Skin is dry, Skin is normal color.] LYMPHATIC [No adenopathy in neck.] PSYCHIATRIC [Depressed affect. Appropriate eye contact. Patient is tearful at times. Speech is normal.] Course - Re-evaluation Re-evalutation: 05/17/20 21:50 Results of ED MSE discussed with patient. All questions were answered prior to discharge. Emergency signs and symptoms, reasons to return to the emergency department discussed with patient. 05/17/20 21:51 Assessment/differential diagnosis/medical decision making: This is a 35-year-old female with a history of mental health issues in drug abuse issues that presents for evaluation of an acute exacerbation of her emotional state due to external factors that are exacerbating her depression anxiety. While the patient does have multiple personal stressors, she is not showing any signs of suicidal ideation or sharing thoughts of homicidal ideation. Her medical screening exam is basically remarkable for urinary tract infection which she will be treated for. Differential diagnoses: Psychosocial stressors, UTI, depression disorder, anxiety. Plan: Patient will be treated with Macrobid for her UTI, patient has been cleared by psychiatric services here at [facility] ED and will be given a prescription for her UTI and will be discharged. - Vital Signs Vital signs: Temp Pulse Resp BP Pulse Ox 98.5 F 71 16 107/65 100 05/17/20 21:29 05/17/20 21:29 05/17/20 21:29 05/17/20 21:29 05/17/20 21:29 - Laboratory Result Diagrams: 05/17/20 18:21 05/17/20 18:21 Laboratory results interpreted by me: 05/17/20 05/17/20 05/17/20 18:21 18:21 18:21 MCV 78 L MCH 25.9 L RDW 17.3 H Plt Count 458 H BUN 24 H Creatinine 1.48 H Est GFR ( Amer) 48 L Est GFR (MDRD) Non-Af 40 L Total Protein 9.1 H Urine Protein 100 H Urine Blood LARGE H Ur Leukocyte Esterase SMALL H Salicylates < 1.0 L Acetaminophen < 10 L Discharge - Discharge Clinical Impression: Psychosocial stressors UTI (urinary tract infection) Qualifiers: Urinary tract infection type: acute cystitis Hematuria presence: with hematuria Qualified Code(s): N30.01 - Acute cystitis with hematuria Condition: Stable Disposition: HOME, SELF-CARE Instructions: Nitrofurantoin ([facility]), Urinary Tract Infection ([facility]) Additional Instructions: Return to the Emergency Department without delay if any worse. HOME CARE INSTRUCTIONS & INFORMATION: Thank you for choosing us for your medical needs. We hope you're satisfied with the care you received. After you leave, you must properly care for your problem and, at the same time, observe its progress. Any condition can change. Some illnesses can change rapidly over hours or days. If your condition worsens, return to the Emergency Department or see your physician promptly. ABOUT YOUR X-RAYS AND EKG'S: If you had an EKG or X-rays taken, they have been read by the Emergency Physician. The X-rays and EKG's will also be read by a Radiologist or Director Of Partnerships within 24 hours. If discrepancies are noted, you will be notified by telephone. Please be certain the ED has a correct telephone number & address where you can be reached. Also, realize that some fractures or abnormalities do not show up on initial X-rays. If your symptoms continue, see your physician. ABOUT YOUR LABORATORY TEST: If you had laboratory tests, the results have been reviewed by the Emergency Physician. Some test results (for example cultures) may not be available for several days. You will be contacted if any test result shows you need additional treatment. Please be certain the ED has a correct telephone number and address where you can be reached. ABOUT YOUR MEDICATIONS: You will receive instructions on how to take your medicine on the prescription label you receive. Additional information may be provided by the Pharmacy. If you have questions afterwards, call the ED for clarification or further instructions. Some prescribed medications may cause drowsiness. Do not perform tasks such as driving a car or operating machinery without consulting your Pharmacist. If you feel you need a refill of pain medication, your condition will need re-evaluation. Please do not call for a refill of any medication. ABOUT YOUR SIGNATURE: Signature of this document acknowledges to followin. Understanding that you received emergency treatment and that you may be released before al medical problems are known or treated. Please be certain the ED has a correct phone number & address where you can be reached. 2. Acknowledgement that you will arrange for follow-up care as recommended. 3. Authorization for the Emergency Physician to provide information to your follow-up Physician in order to maximize your care. AT ANY TIME, IF YOUR SYMPTOMS CHANGE SIGNIFICANTLY OR WORSEN OR YOU DEVELOP NEW SYMPTOMS, RETURN TO THE EMERGENCY DEPARTMENT IMMEDIATELY FOR RE-EVALUATION. OUR GOAL IS TO PROVIDE EXCELLENT MEDICAL CARE! WE HOPE THAT WE HAVE MET YOUR EXPECTATIONS DURING YOUR EMERGENCY DEPARTMENT VISIT AND THAT YOU FEEL YOU HAVE RECEIVED EXCELLENT CARE! Prescriptions: Nitrofurantoin Monohyd/M-Cryst [Macrobid 100 mg Capsule] 100 mg PO BID 7 Days #1 4 cap Nitrofurantoin Monohyd/M-Cryst [Macrobid 100 mg Capsule] 100 mg PO RTBID 7 Days #14 cap Referrals: LARISSA CARMEN MD [HONORARY] - Follow up as needed
[2020-05-17 23:15] VITALS: BP 109/69
== END 2020-05-17 23:00 | disposition home or self-care (01) ==
LOC: ER 17:21
DX: F41.9 Anxiety disorder, unspecified (principal); F32.9 Major depressive disorder, single episode, unspecified; N30.01 Acute cystitis with hematuria; Z63.8 Other specified problems related to primary support group; Z79.899 Other long term (current) drug therapy; Z65.3 Problems related to other legal circumstances; F14.10 Cocaine abuse, uncomplicated; J45.909 Unspecified asthma, uncomplicated; Z91.013 Allergy to seafood
CPT/HCPCS: 99285; 36415; 80307 ×4; 85025; 80053; 81001; J3490; J8499